=== PATIENT | male | born 1995 | race Hispanic/Latino ===

== ENCOUNTER 2016-09-02 15:42 | Emergency (ER) | payer SELFPAY ==
--- NOTE | 2016-09-02 16:45 | ERNOTE ---
Psychological HPI - Date Date of Service: 09/02/16 - General Chief Complaint: Psychiatric Problem Source: Reports: patient Exam Limitations: Reports: no limitations - Immun/Allergies/Home Medications Allergies/Adverse Reactions: Allergies No Known Allergies Allergy (Verified 09/02/16 16:05) Home Medications: HOME MEDICATIONS Pantoprazole Sodium [Protonix] 40 mg PO DAILY #14 tablet. 09/02/16 [Last Taken Unknown] - History of Present Illness Narrative: Patient presents to the ED with multiple complaints. He relates he has been having insomnia, anxiety, vomiting from his stomach problem and cannot maintain an erection like he used to be able to. He relates he is recently out of group home and has no primary doctor. He relates that none of these problems are acute. He relates he was on ranitidine for his stomach and was supposed to get an EGD 2 years ago before going to group home but never did. He stopped the ranitidine in group home but relates that he will have reflux and vomit after eating for months. No abdominal pain. No blood in stool or vomit. He also relates that he has trouble sleeping at night, has tried melatonin and OTC sleep aid but no help. he also relates trouble maintaining an erection like he used to be able to. He relates anxiety that is longstanding, he has been treated before but none recently. No suicidal or homicidal thoughts. No CP or SOB. He cannot relates an acute concern that brought him to the ED. Time Seen by Provider: 09/02/16 16:10 Onset/duration: Reports: gradual onset Intent: Denies: suicide Associated Symptoms: Denies: depressed, hallucinating, suicidal thoughts Prior Treament: Denies: recently seen Review of Systems - Review of Systems Constitutional: Absent: fever ENT: Present: no symptoms reported Respiratory: Absent: shortness of breath Cardiology: Absent: chest pain Gastrointestinal/Abdominal: Absent: abdominal pain Genitourinary: Absent: dysuria Musculoskeletal: Present: no symptoms reported Skin: Absent: rash Neurological: Absent: weakness Psych: Present: anxiety - Patient's Past Medical History Patient History - Medical: Depression, GERD Patient History - Surgical Procedures: No surgical history - Social History Living Situations: other Psych History: Hx of Depression Does anyone smoke in the home?: Yes Smoking Status: Current every day smoker Physical Exam - Physical Exam General Appearance: Present: alert, no apparent distress Eye Exam: Normal inspection: bilateral, PERRL: bilateral Ears, Nose, Throat: Present: normal ENT inspection Neck: Present: normal inspection Respiratory: Present: no respiratory distress, normal breath sounds, no accessory muscle use, lungs clear Cardiovascular/Chest: Present: regular rate, rhythm Gastrointestinal/Abdominal: Present: normal bowel sounds, nontender, soft, no organomegaly. Absent: tenderness, guarding, rebound Extremity Exam: Present: normal range of motion Neurological Exam: Present: alert, oriented, normal mood/affect, no motor/ sensory deficits, other - No suicidal or homicidal ideation Skin Exam: Present: normal color, warm/dry. Absent: skin rash ED Progress - Vital Signs Patient's Vital Signs:: I have reviewed the patient's vital signs. Vital Signs: Vital Signs 09/02/16 15:51 Temperature 36.9 C Pulse Rate 110 H Respiratory 16 Rate Blood Pressure 148/88 O2 Sat by Pulse 99 Oximetry - Progress/Reassessment Chief Complaint: Psychiatric Problem Progress Note-Subjective: 09/02/16 16:40 I do not feel any emergent testing is required at this time. I will restart a PPI. I will get him a PCP appt to discuss his anxiety, erection difficulties and insomnia as well as to f/u with possible GI vval. Nothing to suggest SI, HI or other acute life threat. Departure Clinical Impression: Insomnia - Departure Disposition: Home self-care Condition: Stable Instructions: Insomnia Additional Instructions: Take medication as directed. Follow-up with primary doctor Monday. Return for fever, thoughts of harming self or others, abdominal pain or if your condition worsens or changes in any way. Prescriptions: Pantoprazole Sodium [Protonix] 40 mg PO DAILY #14 tablet.
[2016-09-02 16:56] VITALS: BP 137/72
== END 2016-09-02 17:04 | disposition home or self-care (01) ==
LOC: ER 15:42
DX: G47.00 Insomnia, unspecified (principal); N52.9 Male erectile dysfunction, unspecified; F17.200 Nicotine dependence, unspecified, uncomplicated; R11.10 Vomiting, unspecified; F41.9 Anxiety disorder, unspecified; F32.9 Major depressive disorder, single episode, unspecified

== ENCOUNTER 2016-09-07 12:37 | Emergency (ER) | payer SELFPAY ==
[2016-09-07 12:53] VITALS: BP 147/91
[2016-09-07] MEDS ORDERED: NAPROXEN SODIUM 550 MG TABLET PO ONE (13:12)
[2016-09-07] MEDS ORDERED: NAPROXEN SODIUM 550 MG TABLET ONE (13:13)
--- NOTE | 2016-09-07 13:23 | ERNOTE ---
Lower Extremity HPI - General Lower Extremities Pain: 3rd toe: right Time Seen by Provider: 09/07/16 13:05 Source: patient Exam Limitations: no limitations - Immun/Allergies/Home Medications Allergies/Adverse Reactions: Allergies Allergy/AdvReac Type Severity Reaction Status Date / Time No Known Allergies Allergy Verified 09/07/16 12:53 Home Medications: HOME MEDICATIONS Pantoprazole Sodium [Protonix] 40 mg PO DAILY #14 tablet. 09/02/16 [Last Taken Unknown] Naproxen [Naprosyn] 500 mg PO BID #20 tablet 09/07/16 [Last Taken Unknown] - History of Present Illness Narrative: Patient got up during the night and stubbed his right middle toe against the couch elevating the toenail, denies any other injury. He has tried tylenol for pain and has not had any relieve also called in to work today as he feels that he is unable to work due to the pain. Location of Incident: home Review of Systems - Review of Systems Constitutional: Absent: recent illness, fever Respiratory: Absent: shortness of breath Cardiology: Absent: chest pain Gastrointestinal/Abdominal: Absent: nausea Musculoskeletal: Present: See HPI - Patient's Past Medical History Patient History - Medical: Depression, GERD Patient History - Cardiac/Respiratory: No pertinent hx Patient History - Cancer: No Hx of Cancer Patient History - Surgical Procedures: No surgical history - Social History Living Situations: other Psych History: Hx of Depression Does anyone smoke in the home?: Yes Physical Exam - Physical Exam General Appearance: Present: wd/wn, alert, no apparent distress, obese Respiratory: Present: no respiratory distress Extremity Exam: Present: other - right third distal toe tender to touch, no deformity, nail in place but does not seems to be attached to the nail bed Neurological Exam: Present: alert, oriented, normal mood/affect, no motor/ sensory deficits Skin Exam: Present: normal color, warm/dry ED Progress - Vital Signs Patient's Vital Signs:: I have reviewed the patient's vital signs. Vital Signs: Vital Signs 09/07/16 12:45 Temperature 36.4 C L Pulse Rate 99 Respiratory 14 Rate Blood Pressure 147/91 O2 Sat by Pulse 100 Oximetry - Progress/Reassessment Chief Complaint: Foot Injury/Pain Departure Clinical Impression: Nail avulsion, toe Qualifiers: Encounter type: initial encounter Qualified Code(s): S91.209A - Unspecified open wound of unspecified toe(s) with damage to nail, initial encounter - Departure Disposition: Home self-care Condition: Good Instructions: Nail Avulsion, Form - Excuse from Work, School, or Physical Activity Additional Instructions: follow up in the family medicine clinic as needed Prescriptions: Naproxen [Naprosyn] 500 mg PO BID #20 tablet
== END 2016-09-07 13:19 | disposition home or self-care (01) ==
LOC: ER 12:37
DX: S91.209A Unspecified open wound of unspecified toe(s) with damage to nail, initial encounter (principal); Z57.31 Occupational exposure to environmental tobacco smoke; X58.XXXA Exposure to other specified factors, initial encounter; Y93.89 Activity, other specified; Y92.008 Other place in unspecified non-institutional (private) residence as the place of occurrence of the external cause; K21.9 Gastro-esophageal reflux disease without esophagitis

== ENCOUNTER 2016-12-01 15:57 | Emergency (ER) | payer MEDICAID ==
[2016-12-01 16:31] VITALS: BP 162/81
[2016-12-01 17:07] LABS: Hematocrit 41.8 % (42.0-52.0); Hemoglobin 14.4 gm/dL (13.5-18.0); Mean Cell Volume 87.1 fl (78-100); Mean Corpuscular Hgb Conc 34.4 g/dl (32-36); Mean Platelet Volume 9.6 fl (6.0-9.5); Neutrophil # 7.1 K/mm3 (1.3-6.0); Neutrophil % 66.2 % (42-75.0); Platelet Count 297 K/mm3 (150-450); Red Cell Distribution Width 13.1 % (11.5-14.0); White Blood Count 10.7 K/mm3 (4.0-10.5)
[2016-12-01 17:15] LABS: Albumin * 3.8 gm/dl (3.4-5.0); Anion Gap 12.3 mmol/L (6.8-13.8); BUN/Creatinine Ratio 13.5 (9.0-21.6); Bilirubin, Total 0.5 mg/dL (0.0-1.1); Ca. Corrected For Albumin 8.5 mg/dL (8.4-10.2); Calcium * 8.7 mg/dL (7.9-10.9); Carbon Dioxide 26.6 mmol/L (24-32.6); Potassium 3.9 mmol/L (3.4-4.6); Total Protein 7.5 gm/dL (6.2-8.2)
--- NOTE | 2016-12-01 17:48 | ERNOTE ---
Medical Problem HPI - Narrative Date of Service: 12/01/16 - General Chief Complaint: Nausea/Vomiting Time Seen by Provider: 12/01/16 16:28 Source: patient Exam Limitations: no limitations - Immun/Allergies/Home Medications Immunizations: IMMUNIZATION HX Immunizations Up to Date No History of Influenza Vaccine No Hx Pneumococcal Vaccination No Allergies/Adverse Reactions: Allergies No Known Allergies Allergy (Verified 12/01/16 16:13) Home Medications: HOME MEDICATIONS NK [No Home Medication] 12/01/16 [Last Taken Unknown] - History of Present History Narrative: Patient presents for left sided pain. This has been coming and going for several moths but was worse today. He felt hot with it and vomited. Left flank /side area. No fever. Now sates pain is gone. He states he has had an ulcer in the past but this does not feel similar. Right now pain resolved. No blood in vomit or stool. No CP or SOB. Nothing really made it better or worse. Timing: gone now Severity: moderate Modifying Factors - (Improves): Present: other - nothing Modifying Factors - (Worsens): Present: other - nothing Review of Systems - Review of Systems Constitutional: Absent: fever ENT: Absent: sore throat Respiratory: Absent: shortness of breath Cardiology: Absent: chest pain Gastrointestinal/Abdominal: Absent: vomiting Genitourinary: Absent: dysuria - Patient's Past Medical History Patient History - Medical: Depression, GERD Patient History - Cardiac/Respiratory: No pertinent hx Patient History - Cancer: No Hx of Cancer Patient History - Surgical Procedures: No surgical history Patient History - Other: None - Social History Living Situations: home Abuse History: Hx of Substance Use Psych History: Hx of Depression Does anyone smoke in the home?: Yes Alcohol Use: none Drug Use: none - Immunizations Immunizations Up to Date: No Hx Pneumococcal Vaccination: No History of Influenza Vaccine: No Physical Exam - Physical Exam General Appearance: Present: alert, no apparent distress, other - patient would no look up from his phone during questining and examination Head Exam: Present: normal inspection Eye Exam: Normal inspection: bilateral, PERRL: bilateral Ears, Nose, Throat: Present: normal ENT inspection Neck: Present: normal inspection Respiratory: Present: no respiratory distress, no accessory muscle use, lungs clear Cardiovascular/Chest: Present: regular rate, rhythm, normal peripheral pulses Gastrointestinal/Abdominal: Present: normal bowel sounds, nontender, nondistended, soft Back Exam: Present: normal inspection, no CVA tenderness. 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 - Vital Signs Patient's Vital Signs:: I have reviewed the patient's vital signs. Vital Signs: Vital Signs 12/01/16 12/01/16 16:07 16:29 Temperature 36.9 C Pulse Rate 103 H 105 H Respiratory 12 12 Rate Blood Pressure 154/84 162/81 O2 Sat by Pulse 94 97 Oximetry - Progress/Reassessment Chief Complaint: Nausea/Vomiting Progress Note-Subjective: 12/01/16 17:47 Patient left AMA while I was in with another treatment. Labs not complete. Departure - Departure Clinical Impression: Flank pain Disposition: Against medical advice Condition: Stable
== END 2016-12-01 17:47 | disposition left against medical advice (07) ==
LOC: ER 15:57
DX: R10.9 Unspecified abdominal pain (principal); Z53.29 Procedure and treatment not carried out because of patient's decision for other reasons